=== PATIENT | female | born 1980 | race African-American/Black ===

== ENCOUNTER 2021-02-04 04:41 | Emergency (ER) | payer OTHER ==
[~2021-02-04] VITALS: Ht 157.5 cm; Wt 86.2 kg
[2021-02-04] MEDS ORDERED: AMLODIPINE-OLM1 EAC3 (05:03)
== END 2021-02-04 07:00 | disposition home or self-care (01) ==
LOC: ER 04:41
DX: R60.0 Localized edema (principal)